=== PATIENT | female | born 1945 | race Caucasian/White ===

== ENCOUNTER → 2019-09-28 | Outpatient (CLI) | payer MEDICARE | LOC: MC.RAD 09:35 | DX: Z12.31 Encounter for screening mammogram for malignant neoplasm of breast (principal) ==

== ENCOUNTER 2022-05-27 10:34 | Outpatient (CLI) | payer MEDICARE ==
[~2022-05-27] VITALS: Ht 162.6 cm; Wt 67.5 kg
[2022-05-27] MEDS ORDERED: GLUCOPHAGE500 MG/TAB PO (11:13)
[2022-05-27] MEDS ORDERED: PRINIVIL5 MG PO (11:13)
[2022-05-27] MEDS ORDERED: NOVOLOG 100U100 U/M1 SQ (11:14)
[2022-05-27] MEDS ORDERED: ASPIRIN 81M81 MG/TA2 PO (11:15)
[2022-05-27] MEDS ORDERED: MULTI-VITAMIN W1 TA1 PO (11:15)
[2022-05-27] MEDS ORDERED: LANTUS100 U/ML SQ (11:15)
[2022-05-27 11:17] VITALS: BP 151/82; PULSE 77; TEMP 99.1
--- NOTE | 2022-05-27 12:06 | NUR ---
HAD PT STAY WITH ME FOR 25 MINUTES POST INFUSION TO WATCH FOR REACTION. PT STATES SHE FEELS FINE. IV D/C'D PT WALKED OUT TO SON IN WAITING ROOM
== END 2022-05-27 12:07 | disposition home or self-care (01) ==
LOC: EUO 10:34
DX: M85.10 Skeletal fluorosis, unspecified site (principal); M85.80 Other specified disorders of bone density and structure, unspecified site
CPT/HCPCS: J3489

== ENCOUNTER → 2022-06-18 | Outpatient (CLI) | payer MEDICARE ==
[~2022-06-18] MED LIST: ASPIRIN 81M81 MG/TA2 PO; GLUCOPHAGE500 MG/TAB PO; LANTUS100 U/ML SQ; MULTI-VITAMIN W1 TA1 PO; NOVOLOG 100U100 U/M1 SQ; PRINIVIL5 MG PO
== END ==
LOC: COL.RAD 10:01
DX: G31.1 Senile degeneration of brain, not elsewhere classified (principal)
CPT/HCPCS: A9575